=== PATIENT | male | born 1950 | race Caucasian/White ===

== ENCOUNTER → 2017-02-05 | Outpatient (CLI) | payer MEDICARE ==
[~2017-02-05] MED LIST: ASPIRIN; ASPIRIN81 M1 PO; BACTRIM DS TABL1 TA1 PO; BAYER CHEWABLE81 MG PO; CLARITIN10 M3 PO; DIOVAN; FLOMAX0.4 M1 PO; GLUCOPHAGE500 MG PO; LIPITOR; LIPITOR20 MG PO; LORTAB 5/500 TA1 TA2 PO; LOSARTAN POTASS50 MG PO; NEURONTIN300 MG PO; PRILOSEC PO; TOPROL XL; VITAMIN D 22000 UNIT PO; VITAMIN D2000 UNIT PO; ZITHROMAX PO
--- NOTE | ~2017-02-05 | CR63 ---
[facility]. [facility] A Service of [facility] & [facility] RADIOLOGY TEXT RESULTS PATIENT: XIANG VILLALPANDO LOCATION: [facility] : 46 UNIT #: [id number] AGE: [address]: Beronica Galvan MD SEX: M ORDER DR: [id number] [address] [address] [id number] O MR#: [id number] Acc #: [id number] NAME: XIANG VILLALPANDO : 1950 SEX: M STUDY DATE/TIME: 02/05/2017 11:12 UNIT: [facility] ROOM: STUDY DESCRIPTION: CR Chest 2 View Attending Physician: Beronica Galvan M.D. Referring Physician: Beronica Galvan M.D. Ordering Physician: Beronica Galvan M.D. Primary Care Physician: Beronica Galvan M.D. MEDICAL IMAGING REPORT This report is preliminary unless electronic signature is present. EXAM Chest PA and lateral 02/05/2017 HISTORY Cough since November 02, 2016. Benign essential hypertension, shortness of breath chest congestion. Smoking history. FINDINGS PA and lateral examination of the chest upright shows a good expansion of the parenchyma with a normal distribution of the pulmonary vascularity. There is no indication of congestion, effusion, infiltrate, tumor, or nodular density. The pleural reflections and diaphragmatic contours are normal. The cardiac silhouette and mediastinal anatomy is within normal limits. IMPRESSION Normal chest. Dictated by... Efren Cm M.D. THIS IS AN ELECTRONICALLY VERIFIED REPORT Efren Cm M.D. at 02/06/2017 9:24 AM MARGIE/apollo TD: 02/05/2017 17:40 JOB #: [id number] MEDICAL IMAGING REPORT Page 1 of 1
== END | disposition home or self-care (01) ==
LOC: SRAD 11:04
DX: R05 Cough (principal)
CPT/HCPCS: 71020